=== PATIENT | male | born 1950 | race Caucasian/White ===

== ENCOUNTER 2020-09-11 11:52 | Outpatient (CLI) | payer BC ==
[2020-09-11 14:51] LABS: PTT 28.3 sec (22.0-33.0)
[2020-09-11 23:36] LABS: SARS-CoV-2 PCR by NAA Not Detected (NotDetected)
== END 2020-09-11 11:53 | disposition home or self-care (01) ==
LOC: CSHLAB 11:52
PROVIDERS: ATTEND Specialist
DX: Z01.812 Encounter for preprocedural laboratory examination (principal); Z20.822 Contact with and (suspected) exposure to COVID-19
CPT/HCPCS: 85610; 85730; 87635; U0003; U0005

== ENCOUNTER 2021-05-04 15:34 | Outpatient (CLI) | payer BC | END 2021-05-04 15:35 | disposition home or self-care (01) | LOC: CSHRAD 15:34 | PROVIDERS: ATTEND Specialist | DX: J90 Pleural effusion, not elsewhere classified (principal); R06.02 Shortness of breath; I51.7 Cardiomegaly | CPT/HCPCS: 71046 ==

== ENCOUNTER 2021-06-02 14:15 | Outpatient (CLI) | payer BC | END 2021-06-02 14:16 | disposition home or self-care (01) | LOC: CSHRAD 14:15 | PROVIDERS: ATTEND Specialist | DX: J90 Pleural effusion, not elsewhere classified (principal) | CPT/HCPCS: 71046 ==

== ENCOUNTER 2021-07-10 13:12 | Observation (INO) | payer MEDICARE, BC ==
[2021-07-10] MEDS ORDERED: Ondansetron ODT 4 MG TAB PO PRN (17:51)
[2021-07-10] MEDS ORDERED: Acetaminophen 325 MG TAB PO PRN (17:51)
[2021-07-10] MEDS ORDERED: Electrolyte Replacement Protocol 1 EACH FS PRN (18:00)
[2021-07-10 18:05] LABS: SARS-CoV-2 NAA Rapid Test Not Detected (NotDetected)
[2021-07-10] MEDS ORDERED: Acetaminophen 325 MG TAB ONE (20:18)
[2021-07-10] MEDS ORDERED: Magnesium 2 GM/50 ML 2 GM in Premix Bag 1 BAG IVPB SCH (21:00)
[2021-07-10] MEDS ORDERED: Enoxaparin Sodium 80 MG/0.8 ML SYRINGE SC SCH (21:00)
[2021-07-10] MEDS ORDERED: Enoxaparin Sodium 80 MG/0.8 ML SYRINGE ONE (21:33)
[2021-07-10] MEDS ORDERED: Magnesium 2 GM/50 ML BAG (IN WATER) ONE (21:33)
[2021-07-10] MEDS ORDERED: Atorvastatin Calcium 40 MG TAB ONE (21:35)
[2021-07-10] MEDS: Docusate 100 MG CAP PO SCH (21:51)
[2021-07-10] MEDS: Atorvastatin Calcium 40 MG TAB PO SCH (21:51)
[2021-07-10] MEDS: Potassium Chloride 10 MEQ TAB PO SCH (21:52)
[2021-07-11 03:44] VITALS: BMI 24.4
[2021-07-11 05:43] LABS: Anion Gap 9 mmol/L (10-20); BUN (Urea Nitrogen) 13 mg/dL (8.4-25.7); Calc. Creatinine Clearance 88 mL/min (70-130); Carbon Dioxide 30 mmol/L (23-31); Chloride 102 mmol/L (98-107); Glucose 90 mg/dL (83-110); Magnesium 2.2 mg/dL (1.6-2.6); Sodium 137 mmol/L (136-145)
[2021-07-11 07:33] LABS: #Eosinphils 0.2 10x3/uL (0.0-0.5); #Monocytes 0.4 10x3/uL (0.0-1.1); #Neutrophils 2.2 10x3/uL (1.5-8.4); %Eosinophils 5.4 % (0.0-6.0); %Lymphocytes 30.5 % (18.0-47.0); %Monocytes 9.1 % (0.0-10.0); %Neutrophils 53.8 % (40.0-75.0); Hemoglobin 10.7 g/dL (13.5-17.5); Mean Corpuscular HGB CONC 31.5 g/dL (32.0-36.0); Mean Corpuscular Hemoglobin 26.3 pg (27.0-33.0); Mean Corpuscular Volume 83.5 fl (81.2-95.1); Platelet Count 229 10x3/uL (150-450); RBC Distribution Width 17.6 % (11.5-14.5); Red Blood Cell (RBC) Count 4.07 10x6/uL (4.32-5.72); White Blood Cell (WBC) Count 4.1 10x3/uL (3.5-10.5)
[2021-07-11] MEDS: Aspirin 81 mg Enteric Coated Tablet PO SCH (08:42)
[2021-07-11] MEDS: Docusate 100 MG CAP PO SCH (08:42)
[2021-07-11] MEDS: Losartan Potassium 50 MG TAB PO SCH (08:42)
[2021-07-11] MEDS: Potassium Chloride 10 MEQ TAB PO SCH ×2 (08:42→21:14)
[2021-07-11] MEDS ORDERED: Enoxaparin Sodium 80 MG/0.8 ML SYRINGE SC SCH (09:00)
[2021-07-11] MEDS ORDERED: Furosemide 40 MG/4 ML VIAL SLOW IVP SCH (09:00)
[2021-07-11] MEDS: Apixaban 5 MG TAB PO SCH (21:13)
[2021-07-11] MEDS: Atorvastatin Calcium 40 MG TAB PO SCH (21:14)
[2021-07-12 06:14] LABS: Anion Gap 11 mmol/L (10-20); BUN (Urea Nitrogen) 11 mg/dL (8.4-25.7); Calc. Creatinine Clearance 91 mL/min (70-130); Calcium 8.8 mg/dL (7.8-10.44); Carbon Dioxide 26 mmol/L (23-31); Chloride 104 mmol/L (98-107); Glucose 82 mg/dL (83-110); Potassium 4.2 mmol/L (3.5-5.1); Sodium 137 mmol/L (136-145)
[2021-07-12 06:15] LABS: #Eosinphils 0.3 10x3/uL (0.0-0.5); #Monocytes 0.4 10x3/uL (0.0-1.1); %Basophils 0.7 % (0.0-2.0); %Eosinophils 5.9 % (0.0-6.0); %Lymphocytes 27.2 % (18.0-47.0); %Monocytes 8.7 % (0.0-10.0); Hemoglobin 11.1 g/dL (13.5-17.5); Mean Corpuscular HGB CONC 31.8 g/dL (32.0-36.0); Mean Corpuscular Hemoglobin 26.4 pg (27.0-33.0); Mean Corpuscular Volume 82.9 fl (81.2-95.1); Mean Platelet Volume 9.5 fl (7.4-10.4); Platelet Count 222 10x3/uL (150-450); RBC Distribution Width 17.4 % (11.5-14.5); Red Blood Cell (RBC) Count 4.21 10x6/uL (4.32-5.72); White Blood Cell (WBC) Count 4.3 10x3/uL (3.5-10.5)
[2021-07-12 07:26] VITALS: BP 107/69; TEMP 98.3
[2021-07-12] MEDS ORDERED: Magnesium 2 GM/50 ML 2 GM in Premix Bag 1 BAG IVPB SCH (08:00)
[2021-07-12] MEDS: Potassium Chloride 10 MEQ TAB PO SCH (08:58)
[2021-07-12] MEDS: Losartan Potassium 50 MG TAB PO SCH (08:58)
[2021-07-12] MEDS: Apixaban 5 MG TAB PO SCH (08:59)
[2021-07-12] MEDS: Aspirin 81 mg Enteric Coated Tablet PO SCH (08:59)
[2021-07-12] MEDS ORDERED: Furosemide 20 MG TAB PO SCH ×2 (09:00)
[2021-07-12] MEDS ORDERED: Spironolactone 25 MG TAB PO SCH (09:00)
[2021-07-12] MEDS ORDERED: Docusate 100 MG CAP PO SCH (09:00)
== END 2021-07-12 13:55 | disposition home or self-care (01) ==
LOC: CSHERS 13:12 → CSHERHOLD 16:57 → INTOOBSV 16:57 → CSHTELE 07-11 03:31
PROVIDERS: ADMIT Family Medicine; ATTEND Family Medicine
DX: I26.99 Other pulmonary embolism without acute cor pulmonale (principal); T82.110A Breakdown (mechanical) of cardiac electrode, initial encounter; I11.0 Hypertensive heart disease with heart failure; I50.33 Acute on chronic diastolic (congestive) heart failure; I48.0 Paroxysmal atrial fibrillation; Z95.2 Presence of prosthetic heart valve; R60.0 Localized edema; Z79.899 Other long term (current) drug therapy; Z79.82 Long term (current) use of aspirin; I25.10 Atherosclerotic heart disease of native coronary artery without angina pectoris; Z95.1 Presence of aortocoronary bypass graft; K21.9 Gastro-esophageal reflux disease without esophagitis; Z95.0 Presence of cardiac pacemaker; E78.2 Mixed hyperlipidemia; Z20.822 Contact with and (suspected) exposure to COVID-19
CPT/HCPCS: 71046; 80048 ×2; 83735 ×2; 83880; 85025 ×2; 93005; 93970; 94760 ×3; 99285; U0002; 36415; 71045; 71275; 80053; 83690; 84484; 85379; 93010; 96372; 96374; J1650; J1940; J3475; Q9967

== ENCOUNTER 2021-08-24 13:43 | Outpatient (CLI) | payer MEDICARE, BC | END 2021-08-24 13:44 | disposition home or self-care (01) | LOC: CSHRAD 13:43 | PROVIDERS: ATTEND Physician Assistant Medical | DX: J90 Pleural effusion, not elsewhere classified (principal); J98.11 Atelectasis | CPT/HCPCS: 71046 ==